=== PATIENT | female | born 1965 | race Caucasian/White ===

== ENCOUNTER 2016-12-16 09:43 | Day surgery (SDC) | payer OTHER ==
[~2016-12-16] VITALS: Ht 154.9 cm; Wt 59.0 kg
[2016-12-16] VITALS (11 sets, daily range): BP systolic 112–131; BP diastolic 69–78; PULSE 68–106; RESP 17–20; Ht 154.9 cm; Wt 59.0 kg
[~2016-12-16 09:43] MED LIST: CEPH-443 PO; CLINDAMYCIN 600 MG/D5W (PMX) 50 ML IVPB ONE; CLINDAMYCIN 600 MG/D5W (PMX) 50 ML IVPB SCH; IBUP-1542 PO; SOD CHLORIDE 0.9% 1,000 ML IV SCH; SOD CHLORIDE 0.9% 1,000 ML IV* SCH
[2016-12-16 11:45] LABS: BASOPHIL # 0.1 10^3/ul (0.0-0.1); EOSINOPHILS # 0.2 10^3/ul (0.0-0.5); EOSINOPHILS % 3.8 % (0.0-7.0); HEMATOCRIT 37.2 % (37.0-47.0); LYMPHOCYTES # 1.8 10^3/ul (0.8-2.9); MEAN CORPUSCULAR HEMOGLOBIN 26.7 pg (29.0-33.0); MEAN CORPUSCULAR HGB CONC 32.3 g/dl (32.0-37.0); MEAN CORPUSCULAR VOLUME 82.7 fl (82.0-101.0); MEAN PLATELET VOLUME 10.6 fl (7.4-10.4); MONOCYTE # 0.5 10^3/ul (0.3-0.9); MONOCYTES % 9.3 % (0.0-11.0); NEUTROPHILS % 49.7 % (39.0-77.0); PLATELET COUNT 413 10^3/UL (140-415); RED CELL DISTRIBUTION WIDTH 17.9 % (11.5-14.5)
--- NOTE | 2016-12-16 11:46 | RADRPT ---
PROCEDURE: XR Chest. CLINICAL INDICATION: Preoperative, left shoulder mass TECHNIQUE: Single frontal view of the chest was obtained COMPARISON: None FINDINGS: The heart and mediastinum are within normal limits. The lungs are clear. There is no pleural effusion or pneumothorax. RPTAT: AA IMPRESSION: No acute disease. .Cuauhtemoc Fong MD, MD Date Time Electronically viewed and signed by .Cuauhtemoc Fong MD, MD on 12/16/2016 11:45 .S/
[2016-12-16 11:51] LABS: INR 0.9; PROTIME 12.1 Sec (12.2-14.2); PT RATIO 0.9
[2016-12-16 11:52] LABS: PARTIAL THROMBOPLASTIN TIME 27.2 Sec (25.0-35.0)
[2016-12-16 11:53] LABS: ALBUMIN 4.4 g/dl (3.3-4.9); ALBUMIN/GLOBULIN RATIO 1.1; BILIRUBIN,INDIRECT 0.2 mg/dl (0-1.1); BILIRUBIN,TOTAL 0.2 mg/dl (0.2-1.3); TOTAL PROTEIN 8.4 g/dl (6.1-8.1)
[2016-12-16 12:00] LABS: CALCIUM 9.8 mg/dl (8.4-10.2); CREATININE 0.58 mg/dl (0.44-1.00); POTASSIUM 4.2 mmol/L (3.5-5.1)
[2016-12-16] MEDS ORDERED: LIDOCAINE 2% (MDV) 20 ML INJ ONE (12:28)
[2016-12-16] MEDS ORDERED: BUPIVACAINE 0.25% (MPF) 30 ML INJ ONE (12:29)
[2016-12-16] MEDS ORDERED: MIDAZOLAM 1 MG/ML 2 ML INJ ONE (12:40)
[2016-12-16] MEDS ORDERED: PROPOFOL 20 ML ONE (12:40)
[2016-12-16] MEDS ORDERED: LIDOCAINE 2% (SDV) 5 ML INJ ONE (12:40)
[2016-12-16] MEDS ORDERED: FENTAnyl 50 MCG/ML VIAL ONE (12:40)
[2016-12-16] MEDS ORDERED: PHENYLephrine (100 MCG/ML) 5ML SYG ONE (12:52)
[2016-12-16] MEDS ORDERED: CLINDAMYCIN 600 MG/D5W (PMX) 50 ML IVPB ONE (13:01)
[2016-12-16] MEDS ORDERED: EPHEDrine SULFATE 50 MG/5 ML SYG ONE (13:01)
[2016-12-16] MEDS ORDERED: METOCLOPRAMIDE 10 MG INJ ONE (13:04)
[2016-12-16] MEDS ORDERED: ONDANSETRON 4 MG INJ ONE (13:04)
[2016-12-16] MEDS ORDERED: DEXAMETHASONE 4 MG/ML 1 ML INJ ONE (13:04)
[2016-12-16] MEDS ORDERED: OXYCODONE/ACETAMINOPHEN (5/325) TAB PO PRN (13:30)
[2016-12-16] MEDS ORDERED: DIPHENHYDRAMINE 50 MG INJ IV PRN (13:30)
[2016-12-16] MEDS ORDERED: HYDROmorphONE (0.2 MG/ML) 10ML SYG IV PRN (13:30)
[2016-12-16] MEDS ORDERED: PROCHLORPERAZINE 10 MG INJ IV PRN (13:30)
[2016-12-16] MEDS ORDERED: ONDANSETRON 4 MG INJ IV PRN (13:30)
[2016-12-16] MEDS ORDERED: HYDROCODONE/APAP (5/325) TAB PO ONE (13:30)
[2016-12-16] MEDS ORDERED: FENTAnyl 50 MCG/ML VIAL IV PRN (13:30)
[2016-12-16] MEDS ORDERED: MEPERIDINE 25 MG INJ IV PRN (13:30)
--- NOTE | 2016-12-16 13:30 | OPR ---
Date/Time of Note Date/Time of Note DATE: 12/16/16 TIME: 13:19 Operative Report Procedure Date: Dec 16, 2016 Preoperative Diagnosis left shoulder mass Postoperative Diagnosis left shoulder mass Operation Performed 1. left shoulder mass excision 4 cm mass and 5 cm incision 2. localized adjacent tissue transfer with the use of skin flaps 10 sq cm defect 3. therapeutic injection of subcutaneous marcaine cpt code 97049 Surgeon: Guero DENSON Anesthesia Type: general Estimated Blood Loss: 0 - 10 ml's Specimens left shoulder mass Grafts/Implants: none Complications: no Indications This is a 51 year old female with a left shoulder mass. She request surgical excision of her gallbladder. Risks, alternatives, benefits, and personnel were discussed with the patient. Patient expressed understanding and consents to the operation. Procedure Description The patient is taken to the OR and prepped and draped in the usual standard fashion. Surgical timeout was performed and IV Antibiotics were given. Transverse incision is made with a 15 blade over the mass. Dissection cauterie was taken down to the mass. The mass was excised circumferentially. Hemostasis was established. Due to the tissue defect localized adjacent tissue transfer with these of skin flaps was performed. Multilayer closure with interrupted 3-0 Vicryl and skin yolanda. Therapeutic subcutaneous Marcaine was injected throughout the incision. Dry dressings were applied. Guero DENSON Dec 16, 2016 13:30
--- NOTE | 2016-12-16 19:18 | RADRPT ---
Vent Rate: 69 bpm RR Interval: 0 msec IA Interval: 156 msec QRS Duration: 64 msec QT Interval: 390 msec QTC Interval: 417 msec P-R-T Shonto: 54 - 45 - 29 degrees Normal sinus rhythm Normal ECG Electronically Signed By: Sherif Tabares [id number]
== END 2016-12-16 14:58 | disposition home or self-care (01) ==
LOC: SDS 09:43
PROVIDERS: ATTEND Surgery
DX: D17.79 Benign lipomatous neoplasm of other sites (principal); E78.5 Hyperlipidemia, unspecified
CPT/HCPCS: 14000; 23071; 71010; 80053; 84703; 85025; 85610; 85730; 88307; 93005; J1100; J2250; J2405; J2765; J3010; Z7512; Z7610; J2370